=== PATIENT | male | born 1985 | race Caucasian/White ===

== ENCOUNTER 2024-08-26 12:30 | Emergency (ER) | payer BC | END 2024-08-26 15:13 | disposition home or self-care (01) | LOC: MW.ED 12:30 | DX: J40 Bronchitis, not specified as acute or chronic (principal); Z79.52 Long term (current) use of systemic steroids; Z79.899 Other long term (current) drug therapy; Z75.8 Other problems related to medical facilities and other health care | CPT/HCPCS: 87428-QW; 99283; 99284 ==